=== PATIENT | male | born 1975 | race Caucasian/White ===

== ENCOUNTER 2022-07-13 12:48 | Emergency (ER) | payer SELFPAY ==
[~2022-07-13] VITALS: Ht 172.7 cm; Wt 95.0 kg
[2022-07-13] MEDS ORDERED: ACETAMINOPHEN 500 MG TABLET PO ONE (13:30)
[2022-07-13] MEDS ORDERED: PERTUSS(ACELL),DIPH,TET VAC/PF 0.5 ML SYRINGE IM. ONE (13:30)
[2022-07-13] MEDS ORDERED: LIDOCAINE 1% 10 ML VIAL SQ ONE (13:30)
[2022-07-13] MEDS ORDERED: BACITRACIN 0.9 GM PACKET OINTMENT TP ONE (13:30)
[2022-07-13] MEDS ORDERED: HYDROCODONE/ACETAMINOPHEN 5-325 MG TABLET PO ONE (17:00)
[2022-07-13] MEDS ORDERED: CEPHALEXIN MONOHYDRATE 500 MG CAPSULE PO ONE (17:00)
[2022-07-13] MEDS ORDERED: DOXYCYCLINE HYCLATE 100 MG TABLET PO ONE (17:00)
[2022-07-13] MEDS ORDERED: CEPH-558 PO (18:09)
[2022-07-13] MEDS ORDERED: DOXY-354 PO (18:09)
[2022-07-13] MEDS ORDERED: IBUP-1554 PO (18:09)
[2022-07-13] MEDS ORDERED: BACI28OI29 TP (18:09)
[2022-07-13 19:05] VITALS: BP 133/71
== END 2022-07-13 19:26 | disposition home or self-care (01) ==
LOC: EMS 12:54
DX: S01.21XA Laceration without foreign body of nose, initial encounter (principal); F10.20 Alcohol dependence, uncomplicated; W45.8XXA Other foreign body or object entering through skin, initial encounter; Y93.89 Activity, other specified; Y92.89 Other specified places as the place of occurrence of the external cause; Y99.8 Other external cause status
CPT/HCPCS: 99285; 90715; 90471; 12015; J3490

== ENCOUNTER 2022-07-22 13:22 | Emergency (ER) | payer MEDICAID ==
[~2022-07-22] VITALS: Ht 167.6 cm; Wt 104.5 kg
[~2022-07-22 13:22] MED LIST: BACI28OI29 TP; CEPH-558 PO; DOXY-354 PO; IBUP-1554 PO
[2022-07-22 13:24] VITALS: BP 127/81
[2022-07-22] MEDS ORDERED: BACITRACIN 0.9 GM PACKET OINTMENT TP ONE (15:15)
== END 2022-07-22 15:30 | disposition home or self-care (01) ==
LOC: EMS 13:26
DX: S01.21XD Laceration without foreign body of nose, subsequent encounter (principal); Z48.02 Encounter for removal of sutures; Z79.899 Other long term (current) drug therapy; W45.8XXD Other foreign body or object entering through skin, subsequent encounter
CPT/HCPCS: 99282; Z7502; Z7610